=== PATIENT | female | born 1945 | race Caucasian/White ===

== ENCOUNTER 2022-02-18 17:52 | Emergency (ER) | payer OTHER, MEDICAID ==
[~2022-02-18] VITALS: Ht 152.4 cm; Wt 59.0 kg
[2022-02-18] MEDS ORDERED: DIPHENHYDRAMINE 50MG/ML VIAL IV ONE (22:15)
[2022-02-18 22:27] LABS: BASOPHILS % 0.9 % (0.0-2.0); EOSINOPHILS % 2.5 % (0.0-5.0); HEMATOCRIT. 40.9 % (36.0-48.0); HEMOGLOBIN. 13.8 g/dL (12.0-16.0); LYMPHOCYTES % 22.4 % (20.0-50.0); MEAN CORPUSCULAR HEMOGLOBIN 29.1 pg (28.0-32.0); MEAN PLATELET VOLUME 7.8 fl (7.4-10.4); MONOCYTES % 5.7 % (2.0-8.0); NEUTROPHILS % 68.5 % (40.0-76.0); PLATELET 263 x1000/uL (130-400); RED BLOOD CELL COUNT 4.75 mill/uL (4.2-5.4); RED CELL DISTRIBUTION WIDTH 13.6 % (11.6-14.6)
[2022-02-18 22:30] LABS: CHLORIDE 102 mEq/L (98-107)
[2022-02-18] MEDS ORDERED: IOHEXOL-300 100 ML BOTTLE ONE (23:30)
[2022-02-19] MEDS ORDERED: KETOROLAC 15MG/ML VIAL IV SCH (00:30)
[2022-02-19] MEDS ORDERED: ACETAMINOPHEN 325MG TABLET PO SCH (00:30)
[2022-02-19] MEDS ORDERED: LEVO750T46 MT (01:28)
[2022-02-19] MEDS ORDERED: METR-167 MT (01:28)
[2022-02-19] MEDS ORDERED: METRONIDAZOLE 500MG TABLET PO ONE (01:30)
[2022-02-19] MEDS ORDERED: LEVOFLOXACIN 500MG TABLET PO ONE (01:30)
[2022-02-19 02:54] VITALS: BP 154/54
== END 2022-02-19 02:55 | disposition home or self-care (01) ==
LOC: ER 17:52
DX: K57.92 Diverticulitis of intestine, part unspecified, without perforation or abscess without bleeding (principal); S20.219A Contusion of unspecified front wall of thorax, initial encounter; S10.93XA Contusion of unspecified part of neck, initial encounter; S00.83XA Contusion of other part of head, initial encounter; E11.9 Type 2 diabetes mellitus without complications; I10 Essential (primary) hypertension; W01.0XXA Fall on same level from slipping, tripping and stumbling without subsequent striking against object, initial encounter; Y93.9 Activity, unspecified; Y92.009 Unspecified place in unspecified non-institutional (private) residence as the place of occurrence of the external cause; Z88.0 Allergy status to penicillin; Z98.890 Other specified postprocedural states
CPT/HCPCS: 36415; 70450; 71260; 72125; 74177; 80053; 85025; 93005; 96374; 96375; 99285; J1200; J1885; Q9967

== ENCOUNTER 2022-02-21 01:26 | Emergency (ER) | payer OTHER, MEDICAID ==
[~2022-02-21] VITALS: Ht 152.4 cm; Wt 56.0 kg
[~2022-02-21 01:26] MED LIST: LEVO750T46 MT; METR-167 MT
[2022-02-21] MEDS ORDERED: ONDANSETRON HCL 4MG/2ML INJ IV STA (02:26)
[2022-02-21] MEDS ORDERED: MORPHINE SULFATE 4 MG/ML CPJ (NOT FOR IM USE) IV STA (02:26)
[2022-02-21] MEDS ORDERED: MAGNESIUM/ALUMINUM HYDROXIDE/SIMETHICONE 30ML UDC PO STA (02:26)
[2022-02-21] MEDS ORDERED: VISCOUS LIDOCAINE 2% 15 ML UDC PO STA (02:26)
[2022-02-21 02:58] LABS: BASOPHILS % 0.4 % (0.0-2.0); EOSINOPHILS % 1.1 % (0.0-5.0); HEMATOCRIT. 39.8 % (36.0-48.0); HEMOGLOBIN. 13.6 g/dL (12.0-16.0); LYMPHOCYTES % 15.6 % (20.0-50.0); MEAN CORPUSCULAR HEMOGLOBIN 28.9 pg (28.0-32.0); MEAN CORPUSCULAR VOLUME 84.5 fL (81.0-99.0); MEAN PLATELET VOLUME 8.4 fl (7.4-10.4); MONOCYTES % 7.8 % (2.0-8.0); NEUTROPHILS % 75.1 % (40.0-76.0); PLATELET 275 x1000/uL (130-400); RED BLOOD CELL COUNT 4.71 mill/uL (4.2-5.4); RED CELL DISTRIBUTION WIDTH 13.9 % (11.6-14.6)
[2022-02-21 03:03] LABS: CLARITY URINE CLEAR (CLEAR); COLOR URINE YELLOW (YELLOW); KETONES URINE NEGATIVE (NEGATIVE); LEUKOCYTE ESTERASE URINE 2+ (NEGATIVE); NITRITE URINE NEGATIVE (NEGATIVE); OCCULT BLOOD URINE NEGATIVE (NEGATIVE); PH URINE 6.5 (4.5-8.0); PROTEIN URINE NEGATIVE (NEGATIVE); SPECIFIC GRAVITY URINE 1.019 (1.005-1.030); UROBILINOGEN URINE 0.2 E.U./dL (0.2-1.0)
[2022-02-21 03:11] LABS: CHLORIDE 102 mEq/L (98-107)
[2022-02-21 03:21] LABS: ETHANOL BLOOD < 10 mg/dL
[2022-02-21] MEDS ORDERED: ONDA4TAB5 MT (05:24)
[2022-02-21 05:35] VITALS: BP 131/39
== END 2022-02-21 05:55 | disposition home or self-care (01) ==
LOC: ER 01:26
DX: N30.00 Acute cystitis without hematuria (principal); I10 Essential (primary) hypertension; E11.9 Type 2 diabetes mellitus without complications; Z90.49 Acquired absence of other specified parts of digestive tract; Z88.0 Allergy status to penicillin
CPT/HCPCS: 36415; 71045; 74176; 80053; 80320; 81003; 83690; 84484; 85025; 96374; 96375; 99285; J2270; J2405; G0480

== ENCOUNTER 2023-02-05 20:38 | Inpatient (IN) | payer OTHER, MEDICAID ==
[~2023-02-05] VITALS: Ht 152.4 cm; Wt 55.8 kg
[~2023-02-05 20:38] MED LIST changes: -LEVO750T46 MT; +LEVO750T68 MT; +ONDA4TAB5 MT
[2023-02-05] MEDS ORDERED: ACETAMINOPHEN 500MG TABLET PO ONE (23:00)
[2023-02-06 04:05] LABS: BASOPHILS % 0.5 % (0.0-2.0); EOSINOPHILS % 4.3 % (0.0-5.0); HEMATOCRIT. 34.7 % (36.0-48.0); HEMOGLOBIN. 11.8 g/dL (12.0-16.0); LYMPHOCYTES % 23.4 % (20.0-50.0); MEAN CORPUSCULAR HEMOGLOBIN 28.7 pg (28.0-32.0); MEAN CORPUSCULAR VOLUME 84.6 fL (81.0-99.0); MEAN PLATELET VOLUME 8.2 fl (7.4-10.4); NEUTROPHILS % 64.8 % (40.0-76.0); PLATELET 226 x1000/uL (130-400); RED BLOOD CELL COUNT 4.11 mill/uL (4.2-5.4); RED CELL DISTRIBUTION WIDTH 13.9 % (11.6-14.6)
[2023-02-06 04:26] LABS: CHLORIDE 103 mEq/L (98-107)
[2023-02-06] MEDS ORDERED: SODIUM CHLORIDE 0.9% 1,000 ML IV ONE (05:00)
[2023-02-06] MEDS ORDERED: ASPIRIN 81MG TABLET PO ONE (05:30)
[2023-02-06 06:19] LABS: CLARITY URINE CLEAR (CLEAR); COLOR URINE YELLOW (YELLOW); KETONES URINE NEGATIVE (NEGATIVE); LEUKOCYTE ESTERASE URINE TRACE (NEGATIVE); NITRITE URINE NEGATIVE (NEGATIVE); OCCULT BLOOD URINE NEGATIVE (NEGATIVE); PROTEIN URINE NEGATIVE (NEGATIVE); SPECIFIC GRAVITY URINE 1.009 (1.005-1.030); UROBILINOGEN URINE 0.2 E.U./dL (0.2-1.0)
[2023-02-06 06:48] VITALS: BP 138/56
[2023-02-06 08:16] VITALS: BP 145/67
[2023-02-06] MEDS ORDERED: ONDANSETRON HCL 4MG/2ML INJ IV PRN (11:30)
[2023-02-06] MEDS ORDERED: ACETAMINOPHEN 325MG TABLET PO PRN (11:30)
[2023-02-06] MEDS ORDERED: DEXTROSE 50% WATER 50ML SYRINGE IV PRN (11:30)
[2023-02-06] MEDS ORDERED: PNEUMOCOCCAL VACCINE IM ONE (11:30)
[2023-02-06] MEDS: BLOOD SUGAR DIAGNOSTIC STRIP TEST SCH ×3 (11:50→20:01)
[2023-02-06 11:54] VITALS: BP 148/73
[2023-02-06] MEDS: INSULIN LISPRO 100 UNITS/ML SUBCUT SCH ×3 (12:20→20:06)
[2023-02-06 16:03] VITALS: BP 154/35
[2023-02-06 20:00] VITALS: BP 160/68
[2023-02-06] MEDS ORDERED: DIPHENHYDRAMINE 25MG CAPSULE PO PRN (21:30)
[2023-02-07] VITALS: BP 141/58
[2023-02-07 04:00] VITALS: BP 143/64
[2023-02-07] MEDS: BLOOD SUGAR DIAGNOSTIC STRIP TEST SCH ×4 (06:15→21:00)
[2023-02-07] MEDS: INSULIN LISPRO 100 UNITS/ML SUBCUT SCH ×4 (07:20→22:28)
[2023-02-07 12:00] VITALS: BP 140/70
[2023-02-07] MEDS ORDERED: MAGNESIUM/ALUMINUM HYDROXIDE/SIMETHICONE 30ML UDC PO PRN (12:00)
[2023-02-07 16:00] VITALS: BP 135/65
[2023-02-07 20:00] VITALS: BP 155/66
[2023-02-07] MEDS ORDERED: FAMOTIDINE 20MG TABLET PO SCH (21:00)
[2023-02-08] VITALS: BP 119/70
[2023-02-08 04:00] VITALS: BP 119/64
[2023-02-08] MEDS: BLOOD SUGAR DIAGNOSTIC STRIP TEST SCH ×2 (06:43→12:55)
[2023-02-08 08:00] VITALS: BP 128/36
[2023-02-08] MEDS: INSULIN LISPRO 100 UNITS/ML SUBCUT SCH ×2 (08:47→13:11)
[2023-02-08 12:00] VITALS: BP 125/62
[2023-02-08 14:36] VITALS: BP 130/72
== END 2023-02-08 14:55 | disposition home or self-care (01) | DRG 637 ==
LOC: ER 20:38 → 3WST 02-06 05:20 → EDBEDREQ 02-06 05:35 → EDBEDREQTM 02-06 05:35 → 3WST 02-06 23:03 → 6EST 02-08 00:07
PROVIDERS: ADMIT Internal Medicine; ATTEND Internal Medicine
DX: E11.65 Type 2 diabetes mellitus with hyperglycemia (principal); E43 Unspecified severe protein-calorie malnutrition; E87.1 Hypo-osmolality and hyponatremia; Z68.24 Body mass index [BMI] 24.0-24.9, adult; J44.9 Chronic obstructive pulmonary disease, unspecified; I10 Essential (primary) hypertension; Z88.0 Allergy status to penicillin; Z90.49 Acquired absence of other specified parts of digestive tract; W18.30XA Fall on same level, unspecified, initial encounter; Y93.K1 Activity, walking an animal; Y92.89 Other specified places as the place of occurrence of the external cause; Y99.8 Other external cause status
CPT/HCPCS: 36415; 71045; 73030; 73522; 80053; 81003; 82962; 83036; 84484; 85025; 93005; 97162; 99285; J1815; J7030

== ENCOUNTER 2023-03-29 02:38 | Emergency (ER) | payer OTHER, MEDICAID ==
[~2023-03-29] VITALS: Ht 152.4 cm; Wt 55.0 kg
[2023-03-29] MEDS ORDERED: ALBUTEROL (0.083%) 2.5MG/3ML NEB HHN STA (03:29)
[2023-03-29] MEDS ORDERED: PREDNISONE 20MG TABLET PO STA (03:29)
[2023-03-29] MEDS ORDERED: IPRATROPIUM BROMIDE (0.02%) 0.5MG/2.5ML NEB HHN STA (03:29)
[2023-03-29 03:53] LABS: BASOPHILS % 0.7 % (0.0-2.0); HEMATOCRIT. 37.2 % (36.0-48.0); HEMOGLOBIN. 12.6 g/dL (12.0-16.0); LYMPHOCYTES % 17.7 % (20.0-50.0); MEAN CORPUSCULAR HEMOGLOBIN 28.9 pg (28.0-32.0); MEAN CORPUSCULAR VOLUME 85.1 fL (81.0-99.0); MEAN PLATELET VOLUME 7.5 fl (7.4-10.4); MONOCYTES % 6.7 % (2.0-8.0); NEUTROPHILS % 72.9 % (40.0-76.0); PLATELET 270 x1000/uL (130-400); RED BLOOD CELL COUNT 4.37 mill/uL (4.2-5.4); RED CELL DISTRIBUTION WIDTH 13.9 % (11.6-14.6)
[2023-03-29 04:13] LABS: CHLORIDE 101 mEq/L (98-107)
[2023-03-29] MEDS ORDERED: ALBUTEROL (0.083%) 2.5MG/3ML NEB ONE ×2 (08:22→08:23)
[2023-03-29] MEDS ORDERED: IPRATROPIUM BROMIDE (0.02%) 0.5MG/2.5ML NEB ONE (08:22)
[2023-03-29] MEDS ORDERED: PREDNISONE 20MG TABLET PO NR (09:30)
[2023-03-29] MEDS ORDERED: PRED10TA MT (09:53)
[2023-03-29] MEDS ORDERED: ALBU6.7H3 INH (09:53)
[2023-03-29 10:32] VITALS: BP 112/72
== END 2023-03-29 10:32 | disposition home or self-care (01) ==
LOC: ER 02:38
DX: J20.9 Acute bronchitis, unspecified (principal); I10 Essential (primary) hypertension; E11.9 Type 2 diabetes mellitus without complications
CPT/HCPCS: 36415; 71045; 80053; 83880; 84484; 85025; 93005; 94640; 99285; J7512